=== PATIENT | female | born 1985 | race African-American/Black ===

== ENCOUNTER 2017-05-09 07:06 | Inpatient (IN) ==
[2017-05-09] MEDS ORDERED: ONDANSETRON 4 MG/2 ML VIAL IV PRN ×2 (08:10→16:06)
[2017-05-09] MEDS ORDERED: FAMOTIDINE 20 MG/2 ML VIAL IV ONE (08:12)
[2017-05-09] MEDS ORDERED: ceFAZolin 2,000 MG in PREMIX 1 EACH IV ONE (08:12)
[2017-05-09] MEDS ORDERED: CITRIC ACID/SODIUM CITRATE 30 ML UDCUP PO ONE (08:12)
[2017-05-09] MEDS ORDERED: OXYTOCIN/LR 30 UNIT/1,000 ML BAG IV ONE (08:14)
[2017-05-09] MEDS ORDERED: OXYTOCIN 10 UNIT/ML VIAL IM ONE (08:14)
[2017-05-09] MEDS ORDERED: LACTATED RINGERS 1,000 ML IV SCH ×2 (08:30→16:06)
[2017-05-09 08:39] LABS: Basophils % 0.2 % (0.0-0.8); Eosinophils % 0.6 % (0.00-10.9); Hemoglobin 12.7 GM/DL (12.0-16.0); Immature Granulocytes % 1.2 %; Immature Granulocytes Absolute 0.08 #; Lymphocytes # 1.5 10*3/uL (1.4-4.0); Lymphocytes % 23.3 % (21.3-54.2); Mean Corpuscular HGB Conc 32.6 GM/DL (32-36); Mean Corpuscular Hemoglobin 28 PG (27-34); Mean Corpuscular Volume 85.3 FL (87-102); Mean Platelet Volume 11.2 FL (9.6-12.0); Monocytes # 0.6 10*3/uL (0.11-0.8); Monocytes % 9.4 % (1.7-12.7); Neutrophils # 4.2 10*3/uL (1.4-7.4); Neutrophils % 65.3 % (38.7-73.9); Platelet Count 388 T/CUMM (130-400); Red Blood Count 4.57 MC/CUMM (3.8-5.5); Red Cell Distribution Width 14.2 % (9.3-17.3); White Blood Count 6.5 T/CUMM (4-12)
[2017-05-09 09:05] LABS: Albumin 3.1 G/DL (3.4-5.0); Bilirubin,Total 0.8 MG/DL (0.2-1.0); Calcium 9.7 MG/DL (8.5-10.1); Osmolality,Calculated 271.7 MOS/KG (273-304); Uric Acid 4.3 MG/DL (2.6-6.0)
[2017-05-09 11:27] LABS: Apearance,Urine CLEAR (Clear); Bacteria,Urine Occasional /HPF (Few); Bilirubin,Urine Negative (Negative); Blood, Urine Small mg/dL (Negative); Glucose,Urine (UA) Negative (Negative); Ketones,Urine Negative (Negative); Mucus,Urine Occasional /LPF (Occasional); Nitrite,Urine Negative (Negative); Protein,Urine Negative; RBC,Urine 3 /HPF (0-4); Squamous Epithelial Cell,Urine Occasional /HPF (0-10); Urine Color Yellow (Yellow); Urine Specific Gravity 1.006 (1.001-1.035); Urine Urobilinogen < 2.0 EU/DL (0.2-1.0); WBC,Urine <1 /HPF (0-6)
[2017-05-09 12:41] LABS: Cord Arterial Blood HCO3 22.1 MMOL/L
[2017-05-09 12:42] LABS: Cord Venous Blood HCO3 23.7 MMOL/L; Cord Venous Blood PCO2 44.7 MMHG; Cord Venous Blood PO2 26.8 MMHG
[2017-05-09] MEDS ORDERED: MORPHINE 10 MG/10 ML VIAL ONE (12:51)
[2017-05-09] MEDS ORDERED: fentaNYL 100 MCG/2 ML VIAL ONE (12:52)
[2017-05-09] MEDS ORDERED: ONDANSETRON 4 MG/2 ML VIAL ONE (12:53)
[2017-05-09] MEDS ORDERED: IBUPROFEN 800 MG TABLET PO PRN (16:06)
[2017-05-09] MEDS ORDERED: RHO(D) IMMUNE GLOBULIN 300 MCG SYRINGE IM ONE (16:06)
[2017-05-09] MEDS ORDERED: ACETAMINOPHEN 325 MG TABLET PO PRN (16:06)
[2017-05-09] MEDS ORDERED: OXYTOCIN/LR 20 UNIT/1,000 ML BAG IV ONE (16:06)
[2017-05-09] MEDS ORDERED: SIMETHICONE CHEW 80 MG TABLET PO PRN (16:06)
[2017-05-09] MEDS ORDERED: HYDROmorphone 2 MG/1 ML VIAL IV PRN (16:09)
[2017-05-09 19:42] LABS: Basophils % 0.2 % (0.0-0.8); Eosinophils % 0.1 % (0.00-10.9); Hematocrit 37.3 VOL% (35.7-47.0); Hemoglobin 12.2 GM/DL (12.0-16.0); Immature Granulocytes % 0.6 %; Immature Granulocytes Absolute 0.08 #; Lymphocytes # 1.1 10*3/uL (1.4-4.0); Lymphocytes % 8.7 % (21.3-54.2); Mean Corpuscular HGB Conc 32.7 GM/DL (32-36); Mean Corpuscular Hemoglobin 28 PG (27-34); Mean Platelet Volume 10.3 FL (9.6-12.0); Monocytes # 0.9 10*3/uL (0.11-0.8); Monocytes % 7.2 % (1.7-12.7); Neutrophils # 10.3 10*3/uL (1.4-7.4); Neutrophils % 83.2 % (38.7-73.9); Platelet Count 322 T/CUMM (130-400); Red Blood Count 4.39 MC/CUMM (3.8-5.5); Red Cell Distribution Width 14.1 % (9.3-17.3); White Blood Count 12.4 T/CUMM (4-12)
[2017-05-09] MEDS: DOCUSATE SODIUM 100 MG CAPSULE PO SCH (21:15)
[2017-05-10 05:45] LABS: Basophils % 0.2 % (0.0-0.8); Eosinophils % 0.3 % (0.00-10.9); Hematocrit 34.1 VOL% (35.7-47.0); Hemoglobin 11.2 GM/DL (12.0-16.0); Immature Granulocytes % 0.4 %; Immature Granulocytes Absolute 0.04 #; Lymphocytes # 1.5 10*3/uL (1.4-4.0); Mean Corpuscular HGB Conc 32.8 GM/DL (32-36); Mean Corpuscular Hemoglobin 28 PG (27-34); Mean Corpuscular Volume 85.5 FL (87-102); Mean Platelet Volume 10.8 FL (9.6-12.0); Monocytes # 1.1 10*3/uL (0.11-0.8); Neutrophils # 7.9 10*3/uL (1.4-7.4); Neutrophils % 75.1 % (38.7-73.9); Platelet Count 319 T/CUMM (130-400); Red Blood Count 3.99 MC/CUMM (3.8-5.5); Red Cell Distribution Width 13.9 % (9.3-17.3); White Blood Count 10.5 T/CUMM (4-12)
[2017-05-10] MEDS: MAGNESIUM HYDROXIDE SUSP 30 ML UDCUP PO PRN ×2 (09:21→21:52)
[2017-05-10] MEDS: MULTIVITAMIN (PRENATAL) TABLET PO SCH (09:21)
[2017-05-10] MEDS: DOCUSATE SODIUM 100 MG CAPSULE PO SCH ×2 (09:21→21:52)
[2017-05-11 07:17] VITALS: BP 125/68
[2017-05-11] MEDS: MULTIVITAMIN (PRENATAL) TABLET PO SCH (09:31)
[2017-05-11] MEDS: DOCUSATE SODIUM 100 MG CAPSULE PO SCH (09:31)
[2017-05-11] MEDS ORDERED: INFLUENZA VIRUS VACCINE 0.5 ML SYRINGE IM ONE (11:43)
[2017-05-11] MEDS ORDERED: DIPH/TET/ACEL PERT BOOSTER VACCINE 0.5 ML VIAL IM ONE (11:43)
== END 2017-05-11 13:45 | disposition home or self-care (01) | DRG 540 ==
LOC: N.LDOUT 07:06 → N.LD 07:09 → N.OB 16:00
PROVIDERS: ADMIT Obstetrics & Gynecology; ATTEND Obstetrics & Gynecology